=== PATIENT | female | born 1980 | race Hispanic/Latino ===

== ENCOUNTER 2020-01-09 07:59 | Inpatient (IN) | payer BC ==
[~2020-01-09] VITALS: Ht 157.5 cm; Wt 90.3 kg
[2020-01-09] MEDS ORDERED: LACTATED RINGERS 1000ML 1,000 ML IV SCH (08:15)
[2020-01-09] MEDS ORDERED: CALDOLOR 800MG+NS 250ML 250 ML IV PRN (08:15)
[2020-01-09] MEDS ORDERED: CEFAZOLIN SODIUM 1 GM VIAL IVP PRN (08:15)
[2020-01-09] MEDS ORDERED: OXYTOCIN-LR 20 UNITS/1000 ML 1,000 ML IV SCH (08:15)
[2020-01-09 08:45] LABS: HEMATOCRIT 36.4 % (36-48); MEAN CORPUSCULAR HEMOGLOBIN 28.4 pg (27.0-33.0); MEAN CORPUSCULAR HGB CONC 31.9 g/dL (32.0-36.0); MEAN CORPUSCULAR VOLUME 89.2 fL (79-99); RED BLOOD CELL COUNT(AUTO) 4.08 MIL/uL (4.00-5.50); RED CELL DISTRIBUTION WIDTH 17.6 % (11.0-15.5); WHITE BLOOD COUNT (AUTO) 12.2 K/uL (4.8-10.8)
[2020-01-09] MEDS ORDERED: CEFAZOLIN SODIUM 1 GM VIAL ONE (09:08)
[2020-01-09] MEDS ORDERED: FENTANYL CITRATE PF 50 MCG/1 ML 2ML VIAL ONE (09:08)
[2020-01-09] MEDS ORDERED: DURAMORPH PF1 MG/ML 10ML AMP IV ONE (09:08)
[2020-01-09] MEDS ORDERED: CALDOLOR 800MG+NS 250ML 250 ML IV ONE (09:08)
[2020-01-09] MEDS ORDERED: ONDANSETRON HCL 4 MG/2 ML VIAL ONE (09:08)
[2020-01-09] MEDS ORDERED: OXYTOCIN 10 USP UNITS/ML ONE (09:08)
[2020-01-09] MEDS ORDERED: OXYTOCIN-LR 20 UNITS/1000 ML 1,000 ML IV ONE (09:08)
[2020-01-09] MEDS ORDERED: LANOLIN 30GM OINTMENT TP PRN (09:15)
[2020-01-09] MEDS ORDERED: MEPERIDINE-PF 75 MG/ML SYG IM PRN (09:15)
[2020-01-09] MEDS ORDERED: MEASLES/MUMPS/RUBELLA VACCINE, LIVE 0.5 ML/VIAL SQ SCH (09:15)
[2020-01-09] MEDS ORDERED: ACETAMINOPHEN-CODEINE 300/30MG TAB PO PRN (09:15)
[2020-01-09] MEDS ORDERED: DIPHENHYDRAMINE HCL 25 MG CAPSULE PO PRN (09:15)
[2020-01-09] MEDS ORDERED: ACETAMINOPHEN EXTRA STRENGTH 500 MG TABLET PO PRN (09:15)
[2020-01-09] MEDS ORDERED: DEXTROSE 5 %-0.45 % NACL 1,000 ML IV PRN (09:15)
[2020-01-09] MEDS ORDERED: PROMETHAZINE HCL 25 MG/ML 1ML AMPULE IM PRN (09:15)
[2020-01-09] MEDS ORDERED: HYDROCODONE/ACETAMINOPHEN 5/325 MG TAB PO PRN (09:15)
[2020-01-09] MEDS ORDERED: BISACODYL 10 MG SUPP.RECT RC PRN (09:15)
[2020-01-09] MEDS ORDERED: OXYTOCIN-LR 20 UNITS/1000 ML 1,000 ML IV PRN (09:15)
[2020-01-09] MEDS ORDERED: SODIUM CHLORIDE 0.9% 10 ML VIAL IVP PRN (09:15)
[2020-01-09] MEDS ORDERED: CEFAZOLIN SODIUM 1 GM VIAL IVP ONE (09:20)
[2020-01-09 09:26] LABS: RAPID PLASMA REAGIN NONREACTIVE (NONREACTIVE)
[2020-01-09] MEDS ORDERED: PHENYLEPHRINE HCL 10 MG/ML 1ML VIAL IV ONE (09:31)
[2020-01-09] MEDS ORDERED: MIDAZOLAM HCL 1 MG/ML 2ML VIAL ONE (09:55)
[2020-01-09] MEDS ORDERED: ONDANSETRON HCL 4 MG/2 ML VIAL IVP PRN (11:00)
[2020-01-09] MEDS ORDERED: NALOXONE HCL 0.4 MG/1 ML ML IVP PRN ×2 (11:00)
[2020-01-09] MEDS ORDERED: DiphenhydrAMINE HCL 50 MG/ML VIAL IVP PRN (11:00)
[2020-01-09 12:13] VITALS: BP 116/63
[2020-01-09] MEDS ORDERED: PNV1TABL17 PO (12:30)
[2020-01-09] MEDS: DIPH,PERTUSS(ACELL),TET VAC/PF 0.5 ML VIAL IM SCH (16:05)
[2020-01-09 16:14] VITALS: BP 130/74
[2020-01-09] MEDS: CALDOLOR 800MG+NS 250ML 250 ML IV SCH (17:51)
[2020-01-09 20:01] VITALS: BP 119/72
[2020-01-09] MEDS: SIMETHICONE 80 MG TAB.CHEW PO PRN (21:20)
[2020-01-09] MEDS: DOCUSATE SODIUM 100 MG CAP PO SCH (21:20)
--- NOTE | 2020-01-09 21:30 | NUR ---
Activity: Ml care done, abdominal binder applied. Patient assisted by Lazaro Merchant CNA to sit up in bed and dangle her legs. She was able to tolerate it well for 1 hour and 30 minutes.
[2020-01-09 23:38] VITALS: BP 92/51
[2020-01-10] MEDS: CALDOLOR 800MG+NS 250ML 250 ML IV SCH (00:59)
[2020-01-10] MEDS: IBUPROFEN 800 MG TAB PO SCH ×2 (01:15→09:07)
[2020-01-10 03:49] VITALS: BP 100/54
--- NOTE | 2020-01-10 06:42 | NUR ---
Long; Long Catheter discontinued patient tolerated it well. She was advice to call for help needed. She verbalizes understanding.
[2020-01-10 07:18] LABS: HEPATITIS Bs ANTIGEN SCREEN P Negative (Negative)
[2020-01-10 07:32] VITALS: BP 104/64
[2020-01-10 07:35] LABS: HEMATOCRIT 28.3 % (36-48); MEAN CORPUSCULAR HEMOGLOBIN 28.6 pg (27.0-33.0); MEAN CORPUSCULAR HGB CONC 31.8 g/dL (32.0-36.0); MEAN CORPUSCULAR VOLUME 89.8 fL (79-99); RED BLOOD CELL COUNT(AUTO) 3.15 MIL/uL (4.00-5.50); RED CELL DISTRIBUTION WIDTH 17.7 % (11.0-15.5); WHITE BLOOD COUNT (AUTO) 10.9 K/uL (4.8-10.8)
[2020-01-10] MEDS ORDERED: LIDOCAINE 5% TOPICAL PATCH TP SCH (09:00)
[2020-01-10] MEDS: DOCUSATE SODIUM 100 MG CAP PO SCH (09:05)
[2020-01-10] MEDS: SIMETHICONE 80 MG TAB.CHEW PO PRN (09:05)
[2020-01-10] MEDS: DIPH,PERTUSS(ACELL),TET VAC/PF 0.5 ML VIAL IM SCH (09:15)
--- NOTE | 2020-01-10 15:40 | NUR ---
PATIENT LEFT UNIT VIA WHEELCHAIR WITH BABY IN ARMS. PERSONAL VEHICLE USED FOR TRANSPORTATION ACCOMPANIED BY . BABY SECURE IN CARSEAT. NO COMPLAINTS OR CONCERNS ADDRESSED FROM PATIENT ON DISCHARGE.
== END 2020-01-10 15:45 | disposition home or self-care (01) | DRG 784 ==
LOC: EDH 07:59 → OBSVTOIN 08:00 → LDH 08:00 → WSH 12:05
PROVIDERS: ADMIT Obstetrics & Gynecology; ATTEND Obstetrics & Gynecology
PROC: 0UB70ZZ Excision of Bilateral Fallopian Tubes, Open Approach (ICD-10-PCS; 2020-01-09)
PROC: 10D00Z1 Extraction of Products of Conception, Low, Open Approach (ICD-10-PCS; principal; 2020-01-09 09:15)
PROC: 3E0234Z Introduction of Serum, Toxoid and Vaccine into Muscle, Percutaneous Approach (ICD-10-PCS; 2020-01-10)
DX: O34.211 Maternal care for low transverse scar from previous cesarean delivery (principal); O60.10X0 Preterm labor with preterm delivery, unspecified trimester, not applicable or unspecified; O99.62 Diseases of the digestive system complicating childbirth; K21.9 Gastro-esophageal reflux disease without esophagitis; Z53.29 Procedure and treatment not carried out because of patient's decision for other reasons; Z3A.38 38 weeks gestation of pregnancy; Z37.0 Single live birth; Z30.2 Encounter for sterilization; Z23 Encounter for immunization
CPT/HCPCS: 36415; 59510; 85027; 86592; 86701; 86850; 86900; 86901; 87340; 87390; 90715; A4344; G0378; J0690; J1741; J2175; J2250; J2274; J2370; J2405; J2550; J2590; J3010; U0003